=== PATIENT | male | born 1965 | race Caucasian/White ===

== ENCOUNTER 2017-04-02 21:58 | Emergency (ER) | payer BC ==
--- NOTE | 2017-04-02 22:30 | ERNOTE ---
Lower Extremity HPI - Narrative Date of Service: 04/02/17 - General Lower Extremities Pain: other: left - calf pain since Tuesday. Time Seen by Provider: 04/02/17 22:22 Source: patient Exam Limitations: no limitations - Immun/Allergies/Home Medications Immunizations: IMMUNIZATION HX Immunizations Up to Date Yes History of Influenza Vaccine No Hx Pneumococcal Vaccination No Allergies/Adverse Reactions: Allergies Allergy/AdvReac Type Severity Reaction Status Date / Time diphtheria,pertussis Allergy Unknown Verified 04/02/17 22:06 (acellular),te [From Adacel(Tdap Adolesn/Adult)(PF)] Home Medications: HOME MEDICATIONS Omeprazole [Prilosec] 20 mg PO DAILY 04/02/17 [Last Taken Unknown] Celecoxib [Celebrex] 200 mg PO QDIPM PRN #10 capsule 04/03/17 [Last Taken Unknown] - History of Present Illness Narrative: 52 year old that was orignially seen at [facility] for left calf pain (x4 days). Sent to the ED for US to rule out a DVT. Denies any previous DVT/PE or back pain. No currently taking any medications for pain. Date (Duration): 04/02/17 Time (Timing): 22:31 Occurred: just prior to arrival Method of Injury: Reports: other - unknown Modifying Factors - (Worsens): Reports: other - dorsiflexion increases the pain. Other Injuries: Reports: none Subsequent Symptoms: Denies: sensory loss, numbness, motor loss Review of Systems - Review of Systems Constitutional: Present: no symptoms reported EYE: Present: no symptoms reported ENT: Present: no symptoms reported Respiratory: Present: no symptoms reported Cardiology: Present: no symptoms reported Gastrointestinal/Abdominal: Present: no symptoms reported Genitourinary: Present: no symptoms reported Musculoskeletal: Present: See HPI Skin: Present: no symptoms reported Neurological: Present: no symptoms reported Endocrine: Present: no symptoms reported Hematologic/Lymphatic: Present: no symptoms reported Psych: Present: no symptoms reported - Patient's Past Medical History Patient History - Medical: GERD Patient History - Cardiac/Respiratory: No pertinent hx Patient History - Cancer: No Hx of Cancer Patient History - Other: None - Social History Living Situations: home Psych History: No pertinent hx Smoking Status: Never smoker - Immunizations Immunizations Up to Date: Yes Hx Pneumococcal Vaccination: No History of Influenza Vaccine: No Physical Exam - Physical Exam General Appearance: Present: no apparent distress Head Exam: Present: normal inspection Eye Exam: Normal inspection: bilateral Ears, Nose, Throat: Present: normal ENT inspection Neck: Present: normal inspection Respiratory: Present: no respiratory distress Cardiovascular/Chest: Present: regular rate, rhythm Gastrointestinal/Abdominal: Present: nontender Back Exam: Present: normal inspection Extremity Exam: Present: normal inspection, other - Left leg-varicose viens present, the calf was not endmatous nor painful on palpation. Neurological Exam: Present: alert, oriented, normal mood/affect Skin Exam: Present: normal color ED Progress - Vital Signs Patient's Vital Signs:: I have reviewed the patient's vital signs. Vital Signs: Vital Signs 04/02/17 22:03 Temperature 36.6 C Pulse Rate 74 Respiratory 15 Rate Blood Pressure 174/100 O2 Sat by Pulse 100 Oximetry - Progress/Reassessment Chief Complaint: Lower Extremity Pain/ Injury Progress Note-Subjective: 04/03/17 00:18 US was negative for DVT, but did show superficial thrombophlebitis. Given Ketorlac 30 mg IM and Tylenol 1 gram po. Departure Clinical Impression: Superficial thrombophlebitis of left leg - Departure Disposition: Home self-care Condition: Good Instructions: Varicose Veins Print Language: [place] Additional Instructions: If the pain worsens and is not controlled by the medication return to the ED. See your primary care physician next week. Referrals: Nitin Yu MD [Primary Care Provider] - Prescriptions: Celecoxib [Celebrex] 200 mg PO QDIPM PRN #10 capsule PRN Reason: Pain
[2017-04-03] MEDS ORDERED: KETOROLAC TROMETHAMINE 30 MG/ML VIAL IM ONE (00:13)
[2017-04-03] MEDS ORDERED: ACETAMINOPHEN 500 MG TABLET PO ONE (00:13)
[2017-04-03] MEDS ORDERED: KETOROLAC TROMETHAMINE 30 MG/ML VIAL ONE (00:13)
[2017-04-03 06:17] VITALS: BP 146/85
== END 2017-04-03 00:28 | disposition home or self-care (01) ==
LOC: ER 21:58
DX: I80.02 Phlebitis and thrombophlebitis of superficial vessels of left lower extremity (principal); K21.9 Gastro-esophageal reflux disease without esophagitis